=== PATIENT | male | born 1990 | race Caucasian/White ===

== ENCOUNTER 2019-10-08 23:31 | Inpatient (IN) | payer OTHER ==
[2019-10-09 04:51] VITALS: BMI 29.0
--- NOTE | 2019-10-09 05:09 | PN ---
S CIWA - CIWA Score Nausea/Vomitin-Mild Nausea/No Vomiting Muscle Tremors: 4-Moderate,w/Arms Extend Anxiety: 2 Agitation: 2 Paroxysmal Sweats: 3 Orientation: 0-Oriented Tacttile Disturbances: 0-None Auditory Disturbances: 0-None Visual Disturbances: 0-None Headache: 5-Severe CIWA-Ar Total Score: 17 BHS Progress Note (SOAP) Subjective: Alcohol withdrawal symptoms Nicotine dependence Seizures Asthma Objective: 10/09/19 05:06 Tremors sweating Anxiety Shakes Vital Signs Temperature 97.1 F L 10/09/19 04:49 Pulse Rate 78 10/09/19 04:49 Respiratory Rate 18 10/09/19 04:49 Blood Pressure 111/78 10/09/19 04:49 O2 Sat by Pulse Oximetry (%) Assessment: 10/09/19 05:07 alcohol withdrawal symptoms Plan: Admit to detox Librium regimen H and P inclu See admission orderding medication confirmation to be done in the morning
[2019-10-09] MEDS ORDERED: ACETAMINOPHEN 325 MG TABLET (FP) PO PRN ×2 (05:10)
[2019-10-09] MEDS ORDERED: chlordiazePOXIDE HCL 25 MG CAPSULE PO PRN (05:10)
[2019-10-09] MEDS ORDERED: MAGNESIUM HYDROX 2400MG/30ML ORAL SUSPENSION 30 ML CUP PO PRN (05:10)
[2019-10-09] MEDS ORDERED: MAGNESIUM CITRATE 300 ML BOTTLE PO PRN (05:10)
[2019-10-09] MEDS ORDERED: IBUPROFEN 400 MG TABLET (FP) PO PRN (05:10)
[2019-10-09] MEDS ORDERED: NICOTINE POLACRILEX 2 MG GUM BUC PRN (05:10)
[2019-10-09] MEDS ORDERED: MAG HYDROX/AL HYDROX/SIMETH 30 ML UNIT-DOSE CUP PO PRN (05:10)
[2019-10-09] MEDS ORDERED: MENTHOL/PHENOL 1 EACH UD MM PRN (05:10)
[2019-10-09] MEDS ORDERED: hydrOXYzine PAMOATE 25 MG CAPSULE (FP) PO PRN (05:10)
[2019-10-09] MEDS ORDERED: MELATONIN 5 MG TABLETS PO PRN (05:10)
[2019-10-09] MEDS ORDERED: METHOCARBAMOL 500 MG TABLET PO PRN (05:10)
[2019-10-09] MEDS ORDERED: BISMUTH SUBSALICYLATE 524 MG/30 ML UD PO PRN (05:10)
[2019-10-09] MEDS: chlordiazePOXIDE HCL 25 MG CAPSULE PO SCH ×4 (07:47→22:32)
--- NOTE | 2019-10-09 11:10 | HP ---
CIWA Score Nausea/Vomitin-Mild Nausea/No Vomiting Muscle Tremors: 4-Moderate,w/Arms Extend Anxiety: 2 Agitation: 2 Paroxysmal Sweats: 3 Orientation: 0-Oriented Tacttile Disturbances: 0-None Auditory Disturbances: 0-None Visual Disturbances: 0-None Headache: 5-Severe CIWA-Ar Total Score: 17 - Admission Criteria [facility] Guidelines: Admission for Medically Managed Detox: Requires at least one of the followin. CIWA greater than 12 2. Seizures within the past 24 hours 3. Delirium tremens within the past 24 hours 4. Hallucinations within the past 24 hours 5. Acute intervention needed for co occurring medical disorder 6. Acute intervention needed for co occurring psychiatric disorder 7. Severe withdrawal that cannot be handled at a lower level of care (continued vomiting, continued diarrhea, abnormal vital signs) requiring intravenous medication and/or fluids 8. Admitting History and Physical - Primary Care Physician PCP: Dr. Aguilera - Admission Chief Complaint: I want to get cleaned out. 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: Seizure (last seizure a week ago, alcohol related.), Syncope - Past Surgical History Past Surgical History: Yes: None - Smoking History Smoking history: Current every day smoker Have you smoked in the past 12 months: Yes Aproximately how many cigarettes per day: 40 - Alcohol/Substance Use Hx Alcohol Use: Yes Number of Drinks Daily: 1 History of Substance Use: reports: None - Social History Usual Living Arrangement: Yes: Alone Do you think of yourself as: Straight/Heterosexual ADL: Independent History of Recent Travel: No Admission ROS [facility] - [facility] Chief Complaint: I want to get clean. Allergies/Adverse Reactions: Allergies Allergy/AdvReac Type Severity Reaction Status Date / Time haloperidol [From Haldol] Allergy Severe Difficulty Verified 10/09/19 06:05 Breathing strawberry Allergy Intermediate Swelling Verified 10/09/19 06:05 History of Present Illness: pt is a 29yr old male with a history of alcohol dependence seeking detox for treatment. Exam Limitations: No Limitations - Ebola screening Have you traveled outside of the country in the last 21 days: No (N) Have you had contact with anyone from an Ebola affected area: No Have you been sick,other than usual withdrawal symptoms: No Do you have a fever: No - Review of Systems Constitutional: Chills, Diaphoresis, Night Sweats EENT: reports: No Symptoms Reported Respiratory: reports: Cough Cardiac: reports: Lightheadedness, Syncope GI: reports: Poor Appetite, Poor Fluid Intake : reports: No Symptoms Reported Musculoskeletal: reports: No Symptoms Reported Integumentary: reports: No Symptoms Reported Neuro: reports: Seizure (last seizure a week ago), Tingling, Tremors Endocrine: reports: Flushing, Intolerance to Cold, Intolerance to Heat Hematology: reports: No Symptoms Reported Psychiatric: reports: Judgement Intact, Mood/Affect Appropiate, Orientated x3, Agitated, Anxious Other Systems: Reviewed and Negative Patient History - Patient Medical History Hx Anemia: No Hx Asthma: No Hx Chronic Obstructive Pulmonary Disease (COPD): No Hx Cancer: No Hx Cardiac Disorders: No Hx Congestive Heart Failure: No Hx Hypertension: No Hx Hypercholesterolemia: No Hx Pacemaker: No HX Cerebrovascular Accident: No Hx Seizures: Yes (a week ago alcohol related) Hx Dementia: No Hx Diabetes: No Hx Gastrointestinal Disorders: No Hx Liver Disease: No Hx Genitourinary Disorders: No Hx Sexually Transmitted Disorders: No Hx Renal Disease (ESRD): No Hx Thyroid Disease: No Hx Human Immunodeficiency Virus (HIV): No (denies) Hx Hepatitis C: No (denies) Hx Depression: No Hx Suicide Attempt: Yes (in the past, denies any S/H ideations) Hx Bipolar Disorder: No Hx Schizophrenia: No - Patient Surgical History Past Surgical History: Yes Hx Neurologic Surgery: No Hx Cataract Extraction: No Hx Cardiac Surgery: No Hx Lung Surgery: No Hx Breast Surgery: No Hx Breast Biopsy: No Hx Abdominal Surgery: No Hx Appendectomy: Yes Hx Cholecystectomy: No Hx Genitourinary Surgery: No Hx Section: No Hx Orthopedic Surgery: No Anesthesia Reaction: Yes - PPD History Previous Implant?: No Documented Results: Negative w/o proof Date: 10/11/19 PPD to be Administered?: Yes - Reproductive History Patient is a Female of Child Bearing Age (11 -55 yrs old): No Patient : No - Smoking Cessation Smoking history: Current every day smoker Have you smoked in the past 12 months: Yes Aproximately how many cigarettes per day: 40 Hx Chewing Tobacco Use: No Initiated information on smoking cessation: Yes 'Breaking Loose' booklet given: 10/09/19 - Substance & Tx. History Hx Alcohol Use: Yes Hx Substance Use: No Substance Use Type: Alcohol Hx Substance Use Treatment: No - Substances abused Alcohol Substance route: Oral Frequency: Daily Amount used: 1 pint Desean Age of first use: 14 Date of last use: 10/09/19 Admission Physical Exam [facility] - Vital Signs Vital Signs: Vital Signs - 24 hr 10/09/19 10/09/19 04:49 05:53 Temperature 97.1 F L 97.9 F Pulse Rate 78 66 Respiratory 18 18 Rate Blood Pressure 111/78 99/64 - Physical General Appearance: Yes: Appropriately Dressed, Moderate Distress, Tremorous, Irritable, Sweating, Anxious HEENTM: Yes: Hearing grossly Normal, Normal Voice Respiratory: Yes: Lungs Clear, Normal Breath Sounds, No Respiratory Distress Neck: Yes: No masses,lesions,Nodules Breast: Yes: Within Normal Limits Cardiology: Yes: Regular Rhythm, Regular Rate, S1, S2 Abdominal: Yes: Normal Bowel Sounds, Non Tender, Soft Genitourinary: Yes: Within Normal Limits Back: Yes: Normal Inspection Musculoskeletal: Yes: full range of Motion, Back pain Extremities: Yes: Normal Capillary Refill, Normal Inspection, Non-Tender, Tremors 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: 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: 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 NML intact, Fully Oriented, Normal Response Integumentary: Yes: Normal Color, Diaphoresis Lymphatic: Yes: Within Normal Limits - Diagnostic (1) Alcohol dependence with withdrawal, uncomplicated Current Visit: Yes Status: Chronic (2) Nicotine dependence Current Visit: Yes Status: Chronic Qualifiers: Nicotine product type: cigarettes Substance use status: uncomplicated Qualified Code(s): F17.210 - Nicotine dependence, cigarettes, uncomplicated Cleared for Admission [facility] - Detox or Rehab [facility] Level of Care: Medically Managed Detox Regimen/Protocol: Librium Claeared for Rehab Admission: No Breathalyzer - Breathalyzer Breathalyzer: 0 Urine Drug Screen - Test Device Lot number: [id number] Expiration date: 04/23/21 - Control Is test valid?: No - Results Drug screen NEGATIVE: No Urine drug screen results: BZO-Benzodiazepines Inpatient Rehab Admission - Rehab Decision to Admit Inpatient rehab admission?: No
[2019-10-09] MEDS: NICOTINE 21 MG/24 HOURS TOPICAL PATCH TD SCH (12:05)
[2019-10-09] MEDS: PRENATAL VITAMINS W/ FOLIC ACID TABLET (FP) PO SCH (12:05)
--- NOTE | 2019-10-09 14:55 | CONSULT ---
[facility] Psychiatric Consult - Data Date of interview: 10/09/19 Psychiatric History: Patient was approached at bedside and found soud asleep. Please reconsult when patient is awake and willing to be interviewed
[2019-10-09] MEDS ORDERED: THIAMINE HCL 100 MG TABLET (FP) PO SCH (22:00)
[2019-10-10] MEDS: chlordiazePOXIDE HCL 25 MG CAPSULE PO SCH ×3 (06:43→18:15)
[2019-10-10] MEDS: NICOTINE 21 MG/24 HOURS TOPICAL PATCH TD SCH (10:13)
[2019-10-10] MEDS: PRENATAL VITAMINS W/ FOLIC ACID TABLET (FP) PO SCH (10:14)
[2019-10-10 11:23] VITALS: TEMP 98.2
[2019-10-10 11:31] LABS: HEMATOCRIT 41.6 % (35.4-49); MCHC 33.5 g/dl (32.0-35.9); MEAN CELL VOLUME 86.4 fl (80-96); MEAN PLT VOLUME 8.3 fl (7.5-11.1); PLATELET COUNT 245 K/MM3 (134-434); RBC 4.82 M/mm3 (4.00-5.60); RDW 15.2 % (11.9-15.9); WHITE BLOOD COUNT 6.6 K/mm3 (4.0-10.0)
--- NOTE | 2019-10-10 11:34 | PN ---
[facility] CIWA - CIWA Score Nausea/Vomitin-No Nausea/No Vomiting Muscle Tremors: 3 Anxiety: 3 Agitation: 2 Paroxysmal Sweats: 2 Orientation: 0-Oriented Tacttile Disturbances: 0-None Auditory Disturbances: 0-None Visual Disturbances: 0-None Headache: 0-None Present CIWA-Ar Total Score: 10 S Progress Note (SOAP) Subjective: sweats body aches headache Objective: 10/10/19 11:33 Vital Signs Temperature 98.2 F 10/10/19 10:00 Pulse Rate 76 10/10/19 10:00 Respiratory Rate 18 10/10/19 10:00 Blood Pressure 108/66 10/10/19 10:00 O2 Sat by Pulse Oximetry (%) labs pending [id number] lying in bed no acute distress Assessment: 10/10/19 11:34 withdrawals Plan: continue detox increase fluids motrin/tylenol prn
[2019-10-10 11:43] LABS: ALBUMIN 3.2 g/dl (3.4-5.0); BILIRUBIN,TOTAL 0.2 mg/dL (0.2-1); BLOOD UREA NITROGEN 17.1 mg/dL (7-18); CREATININE 0.8 mg/dL (0.55-1.3); POTASSIUM 3.7 mmol/L (3.5-5.1); TOT PROT 6.5 g/dl (6.4-8.2)
[2019-10-10 17:35] VITALS: BP 103/65; PULSE 81
--- NOTE | 2019-10-10 17:51 | DS ---
[facility] Detox Discharge Summary Admission Date: 10/09/19 Discharge Date: 10/10/19 (Pt left AMA) - History Present History: Alcohol Dependence Additional Comments: Pt was admitted 10/09/2019 for alcohol detox. Pt left AMA. Pt did not complete the detox protocol. Pt states, "I didn't sign up for this, i just i want to go home". An attempt to let pt stay and complete the detox protocol failed. Pt is encouraged to follow-up with an outpatient CD program and also to follow-up with his PMD. Pt verbalized understanding of the information given. Pt is alert and oriented x3 and in no acute respiratory distress. Pertinent Past History: H/O of alcohol use disorder. - Physical Exam Results Vital Signs: Vital Signs Temperature 98.2 F 10/10/19 17:35 Pulse Rate 81 10/10/19 17:35 Respiratory Rate 18 10/10/19 17:35 Blood Pressure 103/65 10/10/19 17:35 O2 Sat by Pulse Oximetry (%) Vital Signs 10/10/19 10/10/19 10/10/19 10:00 14:18 17:35 Temperature 98.2 F 98.2 F 98.2 F Pulse Rate 76 76 81 Respiratory 18 18 18 Rate Blood Pressure 108/66 108/66 103/65 Laboratory Last Values WBC 6.6 K/mm3 (4.0-10.0) 10/10/19 08:20 RBC 4.82 M/mm3 (4.00-5.60) 10/10/19 08:20 Hgb 14.0 GM/dL (11.7-16.9) 10/10/19 08:20 Hct 41.6 % (35.4-49) 10/10/19 08:20 MCV 86.4 fl (80-96) 10/10/19 08:20 MCH 29.0 pg (25.7-33.7) 10/10/19 08:20 MCHC 33.5 g/dl (32.0-35.9) 10/10/19 08:20 RDW 15.2 % (11.9-15.9) 10/10/19 08:20 Plt Count 245 K/MM3 (134-434) 10/10/19 08:20 MPV 8.3 fl (7.5-11.1) 10/10/19 08:20 Sodium 143 mmol/L (136-145) 10/10/19 08:20 Potassium 3.7 mmol/L (3.5-5.1) 10/10/19 08:20 Chloride 115 mmol/L (98-107) H 10/10/19 08:20 Carbon Dioxide 22 mmol/L (21-32) 10/10/19 08:20 Anion Gap 6 MMOL/L (8-16) L 10/10/19 08:20 BUN 17.1 mg/dL (7-18) 10/10/19 08:20 Creatinine 0.8 mg/dL (0.55-1.3) 10/10/19 08:20 Est GFR (CKD-EPI)AfAm 137.96 10/10/19 08:20 Est GFR (CKD-EPI)NonAf 119.03 10/10/19 08:20 Random Glucose 101 mg/dL (74-106) 10/10/19 08:20 Calcium 9.0 mg/dL (8.5-10.1) 10/10/19 08:20 Total Bilirubin 0.2 mg/dL (0.2-1) 10/10/19 08:20 AST 7 U/L (15-37) L 10/10/19 08:20 ALT 15 U/L (13-61) 10/10/19 08:20 Alkaline Phosphatase 86 U/L (45-117) 10/10/19 08:20 Total Protein 6.5 g/dl (6.4-8.2) 10/10/19 08:20 Albumin 3.2 g/dl (3.4-5.0) L 10/10/19 08:20 Labs noted. Pertinent Admission Physical Exam Findings: Withdrawal symptoms. - Treatment Hospital Course: Detox Protocol Followed - Medication Discharge Medications: Ambulatory Orders Divalproex *ER* [Depakote *ER* -] 500 mg PO DAILY 10/09/19 Fluphenazine HCl [Prolixin -] 5 mg PO HS 10/09/19 Topiramate [Topamax] 100 mg PO DAILY 10/09/19 - Diagnosis (1) Alcohol dependence with withdrawal, uncomplicated Current Visit: Yes Status: Chronic (2) Nicotine dependence Current Visit: Yes Status: Chronic Qualifiers: Nicotine product type: cigarettes Substance use status: uncomplicated Qualified Code(s): F17.210 - Nicotine dependence, cigarettes, uncomplicated - AMA Did Patient Leave Against Medical Advice: Yes
[2019-10-11] MEDS ORDERED: chlordiazePOXIDE HCL 10 MG CAPSULE PO PRN
[2019-10-11] MEDS ORDERED: chlordiazePOXIDE HCL 10 MG CAPSULE PO SCH (05:00)
[2019-10-12] MEDS ORDERED: chlordiazePOXIDE HCL 10 MG CAPSULE PO SCH (05:00)
[2019-10-13] MEDS ORDERED: chlordiazePOXIDE HCL 10 MG CAPSULE PO ONE (05:00)
== END 2019-10-10 17:59 | disposition left against medical advice (07) | DRG 770 ==
LOC: YASAS 23:31 → Y6N 10-09 05:20
PROVIDERS: ADMIT Allergy & Immunology; ATTEND Allergy & Immunology
PROC: HZ2ZZZZ Detoxification Services for Substance Abuse Treatment (ICD-10-PCS; principal; 2019-10-09)
DX: F10.230 Alcohol dependence with withdrawal, uncomplicated (principal); F17.210 Nicotine dependence, cigarettes, uncomplicated; G40.509 Epileptic seizures related to external causes, not intractable, without status epilepticus; Z88.8 Allergy status to other drugs, medicaments and biological substances; Z91.018 Allergy to other foods; Z91.5 Personal history of self-harm
CPT/HCPCS: 36415; 80053; 85027; 86593

== ENCOUNTER 2021-04-21 13:16 | Inpatient (IN) | payer OTHER ==
[2021-04-21 15:03] VITALS: BMI 34.9
[2021-04-21] MEDS ORDERED: ONDANSETRON *ODT* 4 MG TABLET SL PRN (15:39)
[2021-04-21] MEDS ORDERED: NICOTINE POLACRILEX 4 MG GUM BUC PRN (15:39)
[2021-04-21] MEDS ORDERED: IBUPROFEN 400 MG TABLET (FP) PO PRN (15:39)
[2021-04-21] MEDS ORDERED: MAG HYDROX/AL HYDROX/SIMETH 30 ML UNIT-DOSE CUP PO PRN (15:39)
[2021-04-21] MEDS ORDERED: MENTHOL/PHENOL 1 EACH UD MM PRN (15:39)
[2021-04-21] MEDS ORDERED: BISMUTH SUBSALICYLATE 524 MG/30 ML PO PRN (15:39)
[2021-04-21] MEDS ORDERED: MAGNESIUM CITRATE 300 ML BOTTLE PO PRN (15:39)
[2021-04-21] MEDS ORDERED: ACETAMINOPHEN 325 MG TABLET (FP) PO PRN ×2 (15:39)
[2021-04-21] MEDS ORDERED: METHOCARBAMOL 500 MG TABLET PO PRN (15:39)
[2021-04-21] MEDS ORDERED: LORazepam 1 MG TABLET PO PRN (15:39)
[2021-04-21] MEDS ORDERED: MAGNESIUM HYDROX 2400MG/30ML ORAL SUSPENSION 30 ML CUP PO PRN (15:39)
[2021-04-21] MEDS: LORazepam 2 MG TABLET PO SCH ×2 (17:33→22:29)
[2021-04-21] MEDS: PRENATAL VITAMINS W/ FOLIC ACID TABLET (FP) PO SCH (17:34)
[2021-04-21] MEDS: hydrOXYzine PAMOATE 25 MG CAPSULE (FP) PO SCH ×2 (17:35→22:28)
[2021-04-21] MEDS: DIVALPROEX NA *ER* EXTEND REL 500 MG TABLET.SA (FP) PO SCH (22:28)
[2021-04-21] MEDS: THIAMINE HCL 100 MG TABLET (FP) PO SCH (22:28)
[2021-04-21] MEDS: MELATONIN 5 MG TABLETS PO SCH (22:28)
[2021-04-22] MEDS: LORazepam 2 MG TABLET PO SCH ×4 (05:56→22:17)
[2021-04-22] MEDS: hydrOXYzine PAMOATE 25 MG CAPSULE (FP) PO SCH ×5 (05:56→22:15)
[2021-04-22] MEDS ORDERED: ZIPRASIDONE 40 MG CAPSULE PO SCH (10:00)
[2021-04-22] MEDS ORDERED: TOPIRAMATE 100 MG TABLET PO SCH (10:00)
[2021-04-22] MEDS: PRENATAL VITAMINS W/ FOLIC ACID TABLET (FP) PO SCH (10:09)
[2021-04-22] MEDS: DIVALPROEX NA *ER* EXTEND REL 500 MG TABLET.SA (FP) PO SCH ×2 (10:10→22:16)
[2021-04-22 10:31] LABS: HEMATOCRIT 41.9 % (35.4-49); HEMOGLOBIN 14.1 GM/dL (11.7-16.9); MCH 28.1 pg (25.7-33.7); MCHC 33.7 g/dl (32.0-35.9); MEAN CELL VOLUME 83.3 fl (80-96); MEAN PLT VOLUME 7.4 fl (7.5-11.1); PLATELET COUNT 254 10^3/uL (134-434); RBC 5.03 M/mm3 (4.00-5.60); RDW 14.6 % (11.9-15.9); WHITE BLOOD COUNT 7.7 K/mm3 (4.0-10.0)
[2021-04-22 11:30] LABS: CALCIUM 9.1 mg/dL (8.5-10.1)
[2021-04-22 11:31] LABS: ALBUMIN 3.5 g/dl (3.4-5.0); BLOOD UREA NITROGEN 9.7 mg/dL (7-18)
[2021-04-22 11:34] LABS: CREATININE 0.9 mg/dL (0.55-1.3)
[2021-04-22 11:35] LABS: BILIRUBIN,TOTAL 0.8 mg/dL (0.2-1)
[2021-04-22] MEDS: THIAMINE HCL 100 MG TABLET (FP) PO SCH (22:15)
[2021-04-22] MEDS: MELATONIN 5 MG TABLETS PO SCH (22:17)
[2021-04-23] MEDS ORDERED: LORazepam 1 MG TABLET PO SCH (05:00)
[2021-04-23] MEDS: hydrOXYzine PAMOATE 25 MG CAPSULE (FP) PO SCH (05:44)
[2021-04-23 06:18] VITALS: TEMP 97.5
[2021-04-23 11:12] VITALS: BP 110/76; PULSE 97
[2021-04-24] MEDS ORDERED: LORazepam 0.5 MG TABLET PO PRN
[2021-04-24] MEDS ORDERED: LORazepam 0.5 MG TABLET PO SCH (05:00)
[2021-04-25] MEDS ORDERED: LORazepam 0.5 MG TABLET PO ONE (05:00)
== END 2021-04-23 10:45 | disposition left against medical advice (07) | DRG 770 ==
LOC: YASAS 13:16 → Y6N 16:42
PROVIDERS: ADMIT Allergy & Immunology; ATTEND Allergy & Immunology
PROC: HZ2ZZZZ Detoxification Services for Substance Abuse Treatment (ICD-10-PCS; principal; 2021-04-21)
DX: F10.230 Alcohol dependence with withdrawal, uncomplicated (principal); F12.10 Cannabis abuse, uncomplicated; F17.210 Nicotine dependence, cigarettes, uncomplicated; F43.10 Post-traumatic stress disorder, unspecified; F31.89 Other bipolar disorder; J45.909 Unspecified asthma, uncomplicated; G40.909 Epilepsy, unspecified, not intractable, without status epilepticus; M54.5 Low back pain; G89.29 Other chronic pain; M19.90 Unspecified osteoarthritis, unspecified site; H91.92 Unspecified hearing loss, left ear; Z88.8 Allergy status to other drugs, medicaments and biological substances; Z91.013 Allergy to seafood; Z62.810 Personal history of physical and sexual abuse in childhood; Z56.0 Unemployment, unspecified
CPT/HCPCS: 36415; 80053; 85027; 86780; 93005; 93010; C9803; U0003; U0005